=== PATIENT | male | born 1940 | race Caucasian/White ===

== ENCOUNTER 2016-11-12 13:44 | Inpatient (IN) | payer MEDICARE, MEDICAID ==
[~2016-11-12] VITALS: Ht 185.4 cm; Wt 84.8 kg
[~2016-11-12 13:44] MED LIST: ALBU18HF INH; BIMA2.5D EACHEYE; BRIM5DRO3 EACHEYE; DILT30TA33 PO; FAMO-79 PO; FLUT1DIS3 INH; GEMF600T3 PO; HYDR-882 PO; HYDR4TAB48 PO; IPRA4AER INH; LISI30TA4 PO; LORA2TAB PO; METF500T4 PO; POTA20TA6 PO; SPIR50TA2 PO; [UNRECOGNIZED DRUG - CODE] EACHEYE
[2016-11-12] MEDS ORDERED: SODIUM CHLORIDE FLUSH 10ML SYR IVF ONE (14:00)
[2016-11-12] MEDS ORDERED: PLEASE ENTER HEIGHT AND WEIGHT MC SCH (14:00)
[2016-11-12 14:29] LABS: ASPARTATE AMINO TRANSFERASE 19 U/L (15-37); BLOOD UREA NITROGEN 16 mg/dL (7-18)
[2016-11-12] MEDS ORDERED: SUVO20TA PO (14:30)
[2016-11-12] MEDS ORDERED: METO25TA91 PO (14:30)
[2016-11-12] MEDS ORDERED: TORS20TA2 PO (14:30)
[2016-11-12] MEDS ORDERED: DOCU-144 PO (14:30)
[2016-11-12] MEDS ORDERED: WARF4TAB PO (14:30)
[2016-11-12] MEDS ORDERED: TAMS0.4C2 PO (14:30)
[2016-11-12 14:34] LABS: IS PT STATUS REG ER OR PRE ER? YES
[2016-11-12] MEDS ORDERED: SODIUM CHLORIDE 0.9% 1,000 ML IV ONE (14:44)
[2016-11-12] MEDS ORDERED: ALBUTEROL/IPRATROPIUM 2.5MG/0.5MG, 3 ML ONE (14:51)
[2016-11-12 14:58] LABS: DIFF TOTAL CELLS COUNTED 100 CELL DIFF
[2016-11-12] MEDS ORDERED: AZITHROMYCIN 500 MG in SODIUM CHLORIDE 0.9% 250 ML IV ONE (15:00)
[2016-11-12] MEDS ORDERED: CEFTRIAXONE PMX 1GM/50ML 50 ML IVPB ONE (15:00)
[2016-11-12 15:02] LABS: ANISOCYTOSIS 1+
[2016-11-12 15:04] LABS: VERIFY COUNTS? YES
[2016-11-12] MEDS: ALBUTEROL/IPRATROPIUM 2.5MG/0.5MG, 3 ML NPPB SCH ×2 (15:09→18:57)
[2016-11-12] MEDS ORDERED: SODIUM CHLORIDE 0.9% 1,000 ML IV SCH (15:24)
[2016-11-12] MEDS ORDERED: FAMOTIDINE 20 MG TABLET PO SCH (15:30)
[2016-11-12] MEDS ORDERED: ACETAMINOPHEN 325 MG TABLET PO PRN (15:30)
[2016-11-12] MEDS ORDERED: NITROGLYCERIN 0.4 MG BOTTLE (25 TABS) SL PRN (15:30)
[2016-11-12] MEDS ORDERED: SUVOREXANT PO PRN (15:30)
[2016-11-12] MEDS ORDERED: hydrALAzine 20 MG/ML, 1ML IVPush PRN (15:30)
[2016-11-12] MEDS ORDERED: DOCUSATE 100 MG CAPSULE PO PRN (15:30)
[2016-11-12] MEDS ORDERED: MAGNESIUM SULFATE PMX 4GM/100M 100 ML IV ONE (16:30)
[2016-11-12 16:50] VITALS: BP 109/70
[2016-11-12] MEDS: INSULIN ASPART 100 UNITS/ML, PEN SQ-INSULIN SCH ×2 (17:18→21:00)
[2016-11-12] MEDS: HYDROmorphone 2MG TABLET PO PRN ×2 (17:18→21:41)
[2016-11-12] MEDS: CEFTRIAXONE PMX 2GM/50ML 50 ML IV SCH (17:18)
[2016-11-12] MEDS: AZITHROMYCIN 500 MG in SODIUM CHLORIDE 0.9% 250 ML IV SCH (17:29)
[2016-11-12] MEDS: methylPREDNISolone SOD SUCC 125 MG/2 ML IVPush SCH (18:22)
[2016-11-12 20:00] VITALS: BP 99/63
[2016-11-12] MEDS ORDERED: DILT180C2 PO (20:23)
[2016-11-12] MEDS ORDERED: BIMATOPROST EACHEYE SCH (21:00)
[2016-11-12] MEDS ORDERED: TEMPLATE NON-FORMULARY MED. (Ipratropium/Albuterol Sulfate (Combivent Respimat Inhal Spray INH SCH (21:00)
[2016-11-12] MEDS: LATANOPROST OPHTH 0.005%, 2.5ML EACHEYE SCH (21:34)
[2016-11-12] MEDS: TORSEMIDE 20 MG TABLET PO SCH (21:35)
[2016-11-12] MEDS: DILTIAZEM CD 180 MG CAP.ER.24H PO SCH (21:35)
[2016-11-12] MEDS: FAMOTIDINE 20 MG TABLET PO SCH (21:35)
[2016-11-12] MEDS ORDERED: FLUO60TA PO (23:21)
[2016-11-13] MEDS: HYDROmorphone 2MG TABLET PO PRN ×4 (01:56→22:19)
[2016-11-13] MEDS: methylPREDNISolone SOD SUCC 125 MG/2 ML IVPush SCH ×3 (01:56→18:11)
[2016-11-13 02:00] VITALS: BP 101/57
[2016-11-13] MEDS: ALBUTEROL/IPRATROPIUM 2.5MG/0.5MG, 3 ML NPPB SCH ×6 (03:00→22:40)
[2016-11-13 05:49] LABS: BLOOD UREA NITROGEN 21 mg/dL (7-18)
[2016-11-13 05:53] LABS: ASPARTATE AMINO TRANSFERASE 17 U/L (15-37)
[2016-11-13 06:58] VITALS: BP 102/54
[2016-11-13] MEDS: INSULIN ASPART 100 UNITS/ML, PEN SQ-INSULIN SCH ×4 (07:55→21:00)
[2016-11-13] MEDS: FLUTICASONE/VILANTEROL 100-25MCG/INH INH SCH (09:00)
[2016-11-13] MEDS ORDERED: DILTIAZEM CD 180 MG CAP.ER.24H PO SCH (09:00)
[2016-11-13] MEDS: DILTIAZEM CD 180 MG CAP.ER.24H PO SCH ×3 (09:11→22:00)
[2016-11-13] MEDS: SPIRONOLACTONE 50 MG TABLET PO SCH (09:11)
[2016-11-13] MEDS: TORSEMIDE 20 MG TABLET PO SCH ×2 (09:12→22:00)
[2016-11-13] MEDS: DOCUSATE 100 MG CAPSULE PO SCH (09:12)
[2016-11-13] MEDS: TAMSULOSIN 0.4 MG CAP.ER.24H PO SCH (09:13)
[2016-11-13] MEDS: METOPROLOL SUCCINATE 25 MG TAB.ER.24H PO SCH (09:13)
[2016-11-13] MEDS ORDERED: SODIUM CHLORIDE 0.9% 500 ML IV SCH (11:00)
[2016-11-13 12:09] VITALS: BP 104/58
[2016-11-13] MEDS: BISACODYL 10 MG SUPP PR PRN (12:12)
[2016-11-13 12:14] VITALS: BP 97/54
[2016-11-13] MEDS: FLUOXETINE 20 MG CAPSULE PO SCH (13:03)
[2016-11-13] MEDS ORDERED: AZITHROMYCIN 500 MG in SODIUM CHLORIDE 0.9% 250 ML IV SCH (15:30)
[2016-11-13] MEDS ORDERED: CEFTRIAXONE PMX 2GM/50ML 50 ML IV SCH (15:30)
[2016-11-13 16:02] LABS: ABG COLLECTION SITE LEFT BRACHIAL
[2016-11-13] MEDS: AZITHROMYCIN 500 MG in SODIUM CHLORIDE 0.9% 250 ML IV SCH (16:49)
[2016-11-13] MEDS: CEFTRIAXONE PMX 2GM/50ML 50 ML IV SCH (18:11)
[2016-11-13 18:49] LABS: IS PT STATUS REG ER OR PRE ER? NO
[2016-11-13 19:42] VITALS: BP 92/54
[2016-11-13] MEDS ORDERED: DILTIAZEM HCL 180 MG PO SCH (21:00)
[2016-11-13] MEDS: LATANOPROST OPHTH 0.005%, 2.5ML EACHEYE SCH (22:00)
[2016-11-13] MEDS: FAMOTIDINE 20 MG TABLET PO SCH (22:01)
[2016-11-13 22:07] VITALS: BP 102/62
[2016-11-13 23:39] LABS: IS PT STATUS REG ER OR PRE ER? NO
[2016-11-14 00:55] VITALS: BP 107/63
[2016-11-14] MEDS: ALBUTEROL/IPRATROPIUM 2.5MG/0.5MG, 3 ML NPPB SCH ×5 (01:24→22:22)
[2016-11-14] MEDS: methylPREDNISolone SOD SUCC 125 MG/2 ML IVPush SCH ×3 (01:28→18:08)
[2016-11-14] MEDS: HYDROmorphone 2MG TABLET PO PRN ×5 (03:14→22:40)
[2016-11-14 05:29] LABS: BLOOD UREA NITROGEN 22 mg/dL (7-18)
[2016-11-14 05:32] LABS: ASPARTATE AMINO TRANSFERASE 8 U/L (15-37)
[2016-11-14 05:36] LABS: IS PT STATUS REG ER OR PRE ER? NO
[2016-11-14] MEDS: INSULIN ASPART 100 UNITS/ML, PEN SQ-INSULIN SCH ×4 (07:00→21:00)
[2016-11-14 08:00] VITALS: BP 107/66
[2016-11-14] MEDS: DILTIAZEM CD 180 MG CAP.ER.24H PO SCH ×2 (08:48→21:01)
[2016-11-14] MEDS: SPIRONOLACTONE 50 MG TABLET PO SCH (08:48)
[2016-11-14] MEDS: METOPROLOL SUCCINATE 25 MG TAB.ER.24H PO SCH (08:48)
[2016-11-14] MEDS: FLUOXETINE 20 MG CAPSULE PO SCH (08:48)
[2016-11-14] MEDS: TORSEMIDE 20 MG TABLET PO SCH ×2 (08:48→21:01)
[2016-11-14] MEDS: DOCUSATE 100 MG CAPSULE PO SCH (08:48)
[2016-11-14] MEDS: FLUTICASONE/VILANTEROL 100-25MCG/INH INH SCH (10:25)
[2016-11-14] MEDS: TAMSULOSIN 0.4 MG CAP.ER.24H PO SCH (10:25)
[2016-11-14] MEDS: SODIUM CHLORIDE 0.9% 500 ML IV SCH ×3 (11:00→22:40)
[2016-11-14 13:15] VITALS: BP 112/67
[2016-11-14] MEDS: AZITHROMYCIN 500 MG in SODIUM CHLORIDE 0.9% 250 ML IV SCH (15:30)
[2016-11-14] MEDS: CEFTRIAXONE PMX 2GM/50ML 50 ML IV SCH (16:52)
[2016-11-14] MEDS ORDERED: WARFARIN 2 MG TABLET PO-COUM ONE (18:00)
[2016-11-14 19:46] VITALS: BP 120/71
[2016-11-14] MEDS: FAMOTIDINE 20 MG TABLET PO SCH (21:01)
[2016-11-14] MEDS: GUAIFENESIN ER 600 MG TABLET PO SCH (21:01)
[2016-11-14] MEDS: LATANOPROST OPHTH 0.005%, 2.5ML EACHEYE SCH (21:01)
[2016-11-14] MEDS: BISACODYL 10 MG SUPP PR PRN (21:02)
[2016-11-15] MEDS: methylPREDNISolone SOD SUCC 125 MG/2 ML IVPush SCH ×2 (01:50→09:01)
[2016-11-15] MEDS: ALBUTEROL/IPRATROPIUM 2.5MG/0.5MG, 3 ML NPPB SCH ×3 (02:21→10:47)
[2016-11-15] MEDS: HYDROmorphone 2MG TABLET PO PRN ×2 (02:44→07:09)
[2016-11-15 02:53] VITALS: BP 128/67
[2016-11-15] MEDS: INSULIN ASPART 100 UNITS/ML, PEN SQ-INSULIN SCH ×3 (07:00→12:09)
[2016-11-15] MEDS: SODIUM CHLORIDE 0.9% 500 ML IV SCH (08:00)
[2016-11-15 08:08] VITALS: BP 108/65
[2016-11-15] MEDS: FLUTICASONE/VILANTEROL 100-25MCG/INH INH SCH (09:01)
[2016-11-15] MEDS: FLUOXETINE 20 MG CAPSULE PO SCH (09:04)
[2016-11-15] MEDS: SPIRONOLACTONE 50 MG TABLET PO SCH (09:04)
[2016-11-15] MEDS: DOCUSATE 100 MG CAPSULE PO SCH (09:04)
[2016-11-15] MEDS: TAMSULOSIN 0.4 MG CAP.ER.24H PO SCH (09:04)
[2016-11-15] MEDS: TORSEMIDE 20 MG TABLET PO SCH (09:05)
[2016-11-15] MEDS: GUAIFENESIN ER 600 MG TABLET PO SCH (09:05)
[2016-11-15] MEDS: DILTIAZEM CD 180 MG CAP.ER.24H PO SCH (09:05)
[2016-11-15] MEDS: METOPROLOL SUCCINATE 25 MG TAB.ER.24H PO SCH (09:05)
[2016-11-15 13:09] VITALS: BP 110/66
[2016-11-15] MEDS ORDERED: FLUT1DIS3 INH (14:59)
[2016-11-15] MEDS ORDERED: AZIT500T PO (14:59)
[2016-11-15] MEDS ORDERED: IPRA3AMP NPPB (14:59)
[2016-11-15] MEDS ORDERED: CEFD300C37 PO (14:59)
[2016-11-15] MEDS ORDERED: PRED5TAB PO (14:59)
[2016-11-15] MEDS ORDERED: ALBUTEROL/IPRATROPIUM 2.5MG/0.5MG, 3 ML NPPB SCH (15:00)
[2016-11-15] MEDS ORDERED: NITR100C56 PO (15:09)
[2016-11-15] MEDS ORDERED: WARFARIN 2.5 MG TABLET PO-COUM ONE (18:00)
== END 2016-11-15 15:50 | disposition home or self-care (01) | DRG 871 ==
LOC: ED 14:02 → EDIP 14:58 → 4WST 16:39
PROVIDERS: ADMIT Internal Medicine; ATTEND Internal Medicine
DX: A41.9 Sepsis, unspecified organism (principal); J18.9 Pneumonia, unspecified organism; J96.21 Acute and chronic respiratory failure with hypoxia; D68.69 Other thrombophilia; E87.1 Hypo-osmolality and hyponatremia; J44.0 Chronic obstructive pulmonary disease with (acute) lower respiratory infection; I50.22 Chronic systolic (congestive) heart failure; J44.1 Chronic obstructive pulmonary disease with (acute) exacerbation; N39.0 Urinary tract infection, site not specified; B95.2 Enterococcus as the cause of diseases classified elsewhere; E11.9 Type 2 diabetes mellitus without complications; E78.5 Hyperlipidemia, unspecified; F32.9 Major depressive disorder, single episode, unspecified; F41.9 Anxiety disorder, unspecified; G89.4 Chronic pain syndrome; I07.1 Rheumatic tricuspid insufficiency; I11.0 Hypertensive heart disease with heart failure; I27.2 Other secondary pulmonary hypertension; I34.0 Nonrheumatic mitral (valve) insufficiency; I35.1 Nonrheumatic aortic (valve) insufficiency; I48.91 Unspecified atrial fibrillation; K21.9 Gastro-esophageal reflux disease without esophagitis; N40.0 Benign prostatic hyperplasia without lower urinary tract symptoms; R65.20 Severe sepsis without septic shock; Z79.01 Long term (current) use of anticoagulants; Z96.641 Presence of right artificial hip joint; K59.00 Constipation, unspecified; Z82.49 Family history of ischemic heart disease and other diseases of the circulatory system; Z87.442 Personal history of urinary calculi; Z87.891 Personal history of nicotine dependence; Z95.0 Presence of cardiac pacemaker; Z95.2 Presence of prosthetic heart valve; Z99.81 Dependence on supplemental oxygen; Z88.0 Allergy status to penicillin; Z88.2 Allergy status to sulfonamides; Z88.8 Allergy status to other drugs, medicaments and biological substances
CPT/HCPCS: 36415; 36600; 71010; 80053; 81001; 82803; 82962; 83036; 83605; 83735; 83880; 84100; 84145; 84443; 84484; 85025; 85610; 87040; 87070; 87077; 87086; 87186; 87205; 93005; 93306; 94640; 99285; J0456; J0696; J1815; J7620; J2930; J3475; J7030; J7040; J7050

== ENCOUNTER 2016-11-24 15:02 | Inpatient (IN) | payer MEDICARE, MEDICAID ==
[~2016-11-24] VITALS: Ht 182.9 cm; Wt 86.2 kg
[~2016-11-24 15:02] MED LIST changes: +AZIT500T PO; +CEFD300C37 PO; +DILT180C2 PO; +DOCU-144 PO; +FLUO60TA PO; +IPRA3AMP NPPB; +METO25TA91 PO; +NITR100C56 PO; +PRED5TAB PO; +SUVO20TA PO; +TAMS0.4C2 PO; +TORS20TA2 PO; +WARF4TAB PO
[2016-11-24] MEDS ORDERED: SODIUM CHLORIDE 0.9% 1,000 ML IV ONE (15:12)
[2016-11-24] MEDS ORDERED: SODIUM CHLORIDE FLUSH 10ML SYR IVF ONE (15:30)
[2016-11-24] MEDS ORDERED: PLEASE ENTER HEIGHT AND WEIGHT MC SCH (15:30)
[2016-11-24] MEDS ORDERED: SODIUM CHLORIDE 0.9% 1,000ML IVBOLUS ONE ×3 (15:30→18:00)
[2016-11-24] MEDS ORDERED: HYDROmorphone 1 MG/ML, 1ML IV ONE (15:30)
[2016-11-24] MEDS ORDERED: HYDROmorphone 1 MG/ML, 1ML ONE (15:32)
[2016-11-24 15:39] LABS: HEMATOCRIT 39.3 % (39.2-51.8); HEMOGLOBIN 12.7 g/dL (13.7-18.0); WHITE BLOOD COUNT 36.4 x10^3/uL (3.4-10)
[2016-11-24 15:42] LABS: ASPARTATE AMINO TRANSFERASE 10 U/L (15-37); BLOOD UREA NITROGEN 16 mg/dL (7-18)
[2016-11-24] MEDS ORDERED: TADA5TAB2 PO (15:54)
[2016-11-24] MEDS ORDERED: BUSP7.5T3 PO (15:54)
[2016-11-24] MEDS ORDERED: TAMS0.4C2 PO (15:54)
[2016-11-24] MEDS ORDERED: DILT180C59 PO (15:54)
[2016-11-24] MEDS ORDERED: FLUO40CA9 PO (15:54)
[2016-11-24] MEDS ORDERED: ACETAMINOPHEN 500 MG TABLET ONE (15:59)
[2016-11-24] MEDS ORDERED: CEFTRIAXONE PMX 1GM/50ML 50 ML ONE (15:59)
[2016-11-24] MEDS ORDERED: ACETAMINOPHEN 500 MG TABLET PO ONE (16:00)
[2016-11-24] MEDS ORDERED: CEFTRIAXONE PMX 1GM/50ML 50 ML IVPB ONE (16:00)
[2016-11-24] MEDS ORDERED: SODIUM CHLORIDE 0.9% 1,000 ML IV SCH (20:38)
[2016-11-24] MEDS ORDERED: ACETAMINOPHEN 325 MG TABLET PO PRN (21:00)
[2016-11-24] MEDS ORDERED: TEMAZEPAM 15 MG CAPSULE PO PRN (21:00)
[2016-11-24] MEDS ORDERED: DILTIAZEM 90 MG CAP.ER.12H PO SCH (21:00)
[2016-11-24] MEDS ORDERED: ENALAPRILAT 1.25 MG/ML, 2ML IVPush PRN (21:00)
[2016-11-24] MEDS ORDERED: POLYETHYLENE GLYCOL 17 GM PACKET PO PRN (21:00)
[2016-11-24] MEDS ORDERED: ONDANSETRON ODT 4 MG PO PRN (21:00)
[2016-11-24] MEDS: INSULIN ASPART 100 UNITS/ML, PEN SQ-INSULIN SCH (21:30)
[2016-11-24] MEDS: FAMOTIDINE 20 MG TABLET PO SCH (21:44)
[2016-11-24] MEDS: BUSPIRONE 5 MG TABLET PO SCH (21:44)
[2016-11-24 23:45] VITALS: BP 101/63
[2016-11-25] MEDS ORDERED: ALBUTEROL/IPRATROPIUM 2.5MG/0.5MG, 3 ML NPPB PRN
[2016-11-25 00:24] VITALS: BP 115/75
[2016-11-25] MEDS: CEFTRIAXONE PMX 2GM/50ML 50 ML IV SCH (04:11)
[2016-11-25 05:31] LABS: HEMATOCRIT 37.6 % (39.2-51.8); HEMOGLOBIN 12.3 g/dL (13.7-18.0)
[2016-11-25 05:43] LABS: BLOOD UREA NITROGEN 15 mg/dL (7-18)
[2016-11-25] MEDS ORDERED: metroNIDAZOLE 500 MG TABLET PO SCH (06:00)
[2016-11-25 06:30] LABS: DIFF TOTAL CELLS COUNTED 100 CELL DIFF
[2016-11-25 06:31] LABS: VERIFY COUNTS? YES
[2016-11-25] MEDS: ALBUTEROL/IPRATROPIUM 2.5MG/0.5MG, 3 ML NPPB SCH ×2 (07:00→11:00)
[2016-11-25] MEDS: INSULIN ASPART 100 UNITS/ML, PEN SQ-INSULIN SCH ×4 (07:00→21:00)
[2016-11-25 07:46] VITALS: BP 107/71
[2016-11-25] MEDS ORDERED: AZITHROMYCIN 250 MG TABLET PO SCH (09:00)
[2016-11-25] MEDS: NYSTATIN TOPICAL POWDER 15GM TP SCH ×2 (09:00→21:00)
[2016-11-25] MEDS ORDERED: VANCOMYCIN 50 MG/ML ORAL SUSP PO SCH (09:00)
[2016-11-25] MEDS: DOCUSATE 100 MG CAPSULE PO SCH (09:00)
[2016-11-25] MEDS ORDERED: VANCOMYCIN 50 MG/ML ORAL SUSP PR SCH (09:30)
[2016-11-25] MEDS ORDERED: METRONIDAZOLE PMX 500MG/100ML 100 ML IVPB SCH (09:30)
[2016-11-25 10:13] LABS: ABG COLLECTION SITE LEFT RADIAL; COLLATERAL CIRCULATION TESTING NORMAL; FIO2 ROOM AIR %
[2016-11-25] MEDS: FLUOXETINE 20 MG CAPSULE PO SCH (10:41)
[2016-11-25] MEDS: BUSPIRONE 5 MG TABLET PO SCH ×2 (10:42→20:56)
[2016-11-25] MEDS: TAMSULOSIN 0.4 MG CAP.ER.24H PO SCH (10:42)
[2016-11-25] MEDS: SPIRONOLACTONE 50 MG TABLET PO SCH (10:42)
[2016-11-25] MEDS: SODIUM CHLORIDE 0.9% 1,000 ML IV SCH ×2 (10:43→18:27)
[2016-11-25] MEDS: METOPROLOL SUCCINATE 25 MG TAB.ER.24H PO SCH (10:43)
[2016-11-25] MEDS: FAMOTIDINE 20 MG TABLET PO SCH (10:43)
[2016-11-25 14:16] VITALS: BP_SYST 109; BP_SYST 117; BP_DIAS 73; BP_DIAS 76
[2016-11-25] MEDS: VANCOMYCIN 50 MG/ML ORAL SUSP PO SCH (18:00)
[2016-11-25] MEDS: metroNIDAZOLE 500 MG TABLET PO SCH (18:26)
[2016-11-25 19:55] VITALS: BP 100/65
[2016-11-25] MEDS ORDERED: HYDROmorphone 4MG TABLET PO SCH (20:00)
[2016-11-25] MEDS ORDERED: SODIUM CHLORIDE 0.9% 1,000 ML IV SCH (20:38)
[2016-11-25] MEDS: DILTIAZEM 60 MG CAP.ER.12H PO SCH (20:57)
[2016-11-25] MEDS: HYDROmorphone 4MG TABLET PO PRN (20:57)
[2016-11-25] MEDS ORDERED: DILTIAZEM 90 MG CAP.ER.12H PO SCH (21:00)
[2016-11-25] MEDS ORDERED: DILTIAZEM 120 MG CAP.ER.12H PO SCH (21:00)
[2016-11-26 00:31] VITALS: BP 121/86
[2016-11-26] MEDS: HYDROmorphone 4MG TABLET PO PRN ×5 (00:57→20:15)
[2016-11-26] MEDS: metroNIDAZOLE 500 MG TABLET PO SCH ×3 (03:15→17:41)
[2016-11-26] MEDS: SODIUM CHLORIDE 0.9% 1,000 ML IV SCH ×3 (03:17→22:45)
[2016-11-26] MEDS: CEFTRIAXONE PMX 2GM/50ML 50 ML IV SCH (05:00)
[2016-11-26] MEDS: VANCOMYCIN 50 MG/ML ORAL SUSP PO SCH ×4 (06:06→17:41)
[2016-11-26] MEDS: INSULIN ASPART 100 UNITS/ML, PEN SQ-INSULIN SCH ×4 (07:00→20:16)
[2016-11-26 07:11] VITALS: BP 126/80
[2016-11-26] MEDS: BUSPIRONE 5 MG TABLET PO SCH ×2 (08:44→20:14)
[2016-11-26] MEDS: TAMSULOSIN 0.4 MG CAP.ER.24H PO SCH (08:44)
[2016-11-26] MEDS: FAMOTIDINE 20 MG TABLET PO SCH (08:45)
[2016-11-26] MEDS: DOCUSATE 100 MG CAPSULE PO SCH (08:45)
[2016-11-26] MEDS: FLUOXETINE 20 MG CAPSULE PO SCH (08:45)
[2016-11-26] MEDS: METOPROLOL SUCCINATE 25 MG TAB.ER.24H PO SCH (08:45)
[2016-11-26 08:46] LABS: ASPARTATE AMINO TRANSFERASE 9 U/L (15-37); BLOOD UREA NITROGEN 10 mg/dL (7-18)
[2016-11-26] MEDS: DILTIAZEM 60 MG CAP.ER.12H PO SCH ×2 (08:46→20:14)
[2016-11-26] MEDS: SPIRONOLACTONE 50 MG TABLET PO SCH (08:46)
[2016-11-26 08:50] LABS: HEMATOCRIT 35.5 % (39.2-51.8); HEMOGLOBIN 11.6 g/dL (13.7-18.0); WHITE BLOOD COUNT 16.5 x10^3/uL (3.4-10)
[2016-11-26] MEDS: NYSTATIN TOPICAL POWDER 15GM TP SCH ×2 (09:00→20:18)
[2016-11-26 14:15] VITALS: BP 122/85
[2016-11-26 19:04] VITALS: BP 109/70
[2016-11-27 00:30] VITALS: BP 125/76
[2016-11-27] MEDS: VANCOMYCIN 50 MG/ML ORAL SUSP PO SCH ×4 (00:43→18:27)
[2016-11-27] MEDS: HYDROmorphone 4MG TABLET PO PRN ×5 (00:44→23:15)
[2016-11-27] MEDS: ALBUTEROL/IPRATROPIUM 2.5MG/0.5MG, 3 ML NPPB PRN ×3 (02:13→19:07)
[2016-11-27] MEDS: metroNIDAZOLE 500 MG TABLET PO SCH ×3 (02:34→19:54)
[2016-11-27] MEDS: SODIUM CHLORIDE 0.9% 1,000 ML IV SCH ×3 (05:56→21:48)
[2016-11-27] MEDS: INSULIN ASPART 100 UNITS/ML, PEN SQ-INSULIN SCH ×4 (07:00→21:43)
[2016-11-27 07:57] LABS: BLOOD UREA NITROGEN 8 mg/dL (7-18)
[2016-11-27 08:14] LABS: HEMATOCRIT 34.8 % (39.2-51.8); HEMOGLOBIN 11.2 g/dL (13.7-18.0); WHITE BLOOD COUNT 11.6 x10^3/uL (3.4-10)
[2016-11-27] MEDS: METOPROLOL SUCCINATE 25 MG TAB.ER.24H PO SCH (09:00)
[2016-11-27] MEDS: NYSTATIN TOPICAL POWDER 15GM TP SCH ×2 (09:00→21:47)
[2016-11-27] MEDS ORDERED: POTASSIUM CHLORIDE 20 MEQ TAB.ER.PRT PO ONE (09:00)
[2016-11-27] MEDS: FLUOXETINE 20 MG CAPSULE PO SCH (09:04)
[2016-11-27] MEDS: FAMOTIDINE 20 MG TABLET PO SCH (09:05)
[2016-11-27] MEDS: BUSPIRONE 5 MG TABLET PO SCH ×2 (09:07→21:46)
[2016-11-27] MEDS: DOCUSATE 100 MG CAPSULE PO SCH (09:07)
[2016-11-27] MEDS: SPIRONOLACTONE 50 MG TABLET PO SCH (09:07)
[2016-11-27] MEDS: TAMSULOSIN 0.4 MG CAP.ER.24H PO SCH (09:07)
[2016-11-27] MEDS: DILTIAZEM 60 MG CAP.ER.12H PO SCH ×2 (09:08→21:46)
[2016-11-27 09:16] VITALS: BP 113/73
[2016-11-27 13:04] VITALS: BP 108/64
[2016-11-27 19:56] VITALS: BP 129/72
[2016-11-28] MEDS: VANCOMYCIN 50 MG/ML ORAL SUSP PO SCH ×4 (00:29→20:37)
[2016-11-28 01:11] VITALS: BP 122/81
[2016-11-28] MEDS: metroNIDAZOLE 500 MG TABLET PO SCH ×3 (03:19→19:44)
[2016-11-28] MEDS: HYDROmorphone 4MG TABLET PO PRN ×5 (03:19→23:31)
[2016-11-28] MEDS: ALBUTEROL/IPRATROPIUM 2.5MG/0.5MG, 3 ML NPPB PRN (04:20)
[2016-11-28] MEDS ORDERED: GLUCAGON 1 MG IM PRN (04:30)
[2016-11-28] MEDS ORDERED: DEXTROSE 4 GM TAB.CHEW PO PRN (04:30)
[2016-11-28] MEDS ORDERED: DEXTROSE 50%, 50ML SYRINGE IVPush PRN (04:30)
[2016-11-28] MEDS: SODIUM CHLORIDE 0.9% 1,000 ML IV SCH ×3 (05:50→21:34)
[2016-11-28] MEDS: ALBUTEROL/IPRATROPIUM 2.5MG/0.5MG, 3 ML NPPB SCH ×4 (07:00→19:14)
[2016-11-28] MEDS: INSULIN ASPART 100 UNITS/ML, PEN SQ-INSULIN SCH ×4 (07:00→20:04)
[2016-11-28 07:53] VITALS: BP 126/77
[2016-11-28] MEDS: POTASSIUM CHLORIDE 20 MEQ TAB.ER.PRT PO SCH (09:27)
[2016-11-28] MEDS: BUSPIRONE 5 MG TABLET PO SCH ×2 (09:28→20:37)
[2016-11-28] MEDS: FLUOXETINE 20 MG CAPSULE PO SCH (09:28)
[2016-11-28] MEDS: TAMSULOSIN 0.4 MG CAP.ER.24H PO SCH (09:28)
[2016-11-28] MEDS: SPIRONOLACTONE 50 MG TABLET PO SCH (09:28)
[2016-11-28] MEDS: SODIUM CHLORIDE FLUSH 10ML SYR IVF SCH ×2 (09:28→20:37)
[2016-11-28] MEDS: FAMOTIDINE 20 MG TABLET PO SCH (09:28)
[2016-11-28] MEDS: NYSTATIN TOPICAL POWDER 15GM TP SCH ×2 (09:28→20:38)
[2016-11-28] MEDS: DOCUSATE 100 MG CAPSULE PO SCH (09:29)
[2016-11-28] MEDS: METOPROLOL SUCCINATE 25 MG TAB.ER.24H PO SCH (09:29)
[2016-11-28] MEDS: DILTIAZEM 60 MG CAP.ER.12H PO SCH ×2 (09:29→20:38)
[2016-11-28 13:09] VITALS: BP 127/75
[2016-11-28 13:43] LABS: BLOOD UREA NITROGEN 6 mg/dL (7-18)
[2016-11-28 19:25] VITALS: BP 118/74
[2016-11-29 01:51] VITALS: BP 126/79
[2016-11-29] MEDS: metroNIDAZOLE 500 MG TABLET PO SCH ×3 (01:52→18:39)
[2016-11-29] MEDS: VANCOMYCIN 50 MG/ML ORAL SUSP PO SCH ×4 (01:52→20:30)
[2016-11-29] MEDS: SODIUM CHLORIDE 0.9% 1,000 ML IV SCH (06:00)
[2016-11-29] MEDS: HYDROmorphone 4MG TABLET PO PRN ×2 (06:00→10:06)
[2016-11-29] MEDS: ALBUTEROL/IPRATROPIUM 2.5MG/0.5MG, 3 ML NPPB SCH ×4 (07:00→18:55)
[2016-11-29 08:10] VITALS: BP 129/88
[2016-11-29] MEDS: NYSTATIN TOPICAL POWDER 15GM TP SCH ×2 (08:47→23:26)
[2016-11-29] MEDS: SODIUM CHLORIDE FLUSH 10ML SYR IVF SCH ×2 (08:53→21:53)
[2016-11-29] MEDS: POTASSIUM CHLORIDE 20 MEQ TAB.ER.PRT PO SCH (08:53)
[2016-11-29] MEDS: FLUOXETINE 20 MG CAPSULE PO SCH (08:54)
[2016-11-29] MEDS: FAMOTIDINE 20 MG TABLET PO SCH (08:54)
[2016-11-29] MEDS: DOCUSATE 100 MG CAPSULE PO SCH (08:54)
[2016-11-29] MEDS: TAMSULOSIN 0.4 MG CAP.ER.24H PO SCH (08:54)
[2016-11-29] MEDS: SPIRONOLACTONE 50 MG TABLET PO SCH (08:54)
[2016-11-29] MEDS: BUSPIRONE 5 MG TABLET PO SCH ×2 (08:54→21:54)
[2016-11-29] MEDS: METOPROLOL SUCCINATE 25 MG TAB.ER.24H PO SCH (08:54)
[2016-11-29] MEDS: INSULIN ASPART 100 UNITS/ML, PEN SQ-INSULIN SCH ×4 (08:55→21:00)
[2016-11-29] MEDS: DILTIAZEM 60 MG CAP.ER.12H PO SCH ×2 (08:55→21:53)
[2016-11-29 14:43] VITALS: BP 104/65
[2016-11-29 15:40] LABS: ABG COLLECTION SITE RIGHT RADIAL; COLLATERAL CIRCULATION TESTING NORMAL
[2016-11-29] MEDS ORDERED: FUROSEMIDE 40 MG/4 ML IV ONE (16:30)
[2016-11-29] MEDS ORDERED: FUROSEMIDE 20 MG/2 ML IV ONE (16:30)
[2016-11-29] MEDS ORDERED: WARFARIN 2 MG TABLET PO-COUM SCH (18:00)
[2016-11-29] MEDS ORDERED: TEMAZEPAM 15 MG CAPSULE PO PRN (20:00)
[2016-11-29] MEDS ORDERED: GLUCAGON 1 MG IM PRN (20:00)
[2016-11-29] MEDS ORDERED: ONDANSETRON ODT 4 MG PO PRN (20:00)
[2016-11-29] MEDS ORDERED: ENALAPRILAT 1.25 MG/ML, 2ML IVPush PRN (20:00)
[2016-11-29] MEDS ORDERED: DEXTROSE 4 GM TAB.CHEW PO PRN (20:00)
[2016-11-29] MEDS ORDERED: ACETAMINOPHEN 325 MG TABLET PO PRN (20:00)
[2016-11-29] MEDS ORDERED: DEXTROSE 50%, 50ML SYRINGE IVPush PRN (20:00)
[2016-11-29 21:23] VITALS: BP 109/70
[2016-11-30] MEDS: VANCOMYCIN 50 MG/ML ORAL SUSP PO SCH ×4 (02:05→20:57)
[2016-11-30 02:36] VITALS: BP 137/70
[2016-11-30] MEDS: metroNIDAZOLE 500 MG TABLET PO SCH ×3 (02:41→18:38)
[2016-11-30] MEDS: ALBUTEROL/IPRATROPIUM 2.5MG/0.5MG, 3 ML NPPB SCH ×4 (06:54→20:00)
[2016-11-30 07:25] VITALS: BP 119/76
[2016-11-30] MEDS: INSULIN ASPART 100 UNITS/ML, PEN SQ-INSULIN SCH ×4 (07:30→20:57)
[2016-11-30 07:48] LABS: HEMATOCRIT 36.9 % (39.2-51.8); HEMOGLOBIN 12.1 g/dL (13.7-18.0)
[2016-11-30 07:57] LABS: ABG COLLECTION SITE RIGHT RADIAL; COLLATERAL CIRCULATION TESTING NORMAL
[2016-11-30 07:58] LABS: ASPARTATE AMINO TRANSFERASE 9 U/L (15-37); BLOOD UREA NITROGEN 6 mg/dL (7-18)
[2016-11-30] MEDS ORDERED: FUROSEMIDE 40 MG/4 ML IV ONE (08:00)
[2016-11-30] MEDS ORDERED: OMNIPAQUE 350 MG/ML, 100ML BOTTLE ONE (08:39)
[2016-11-30] MEDS: FAMOTIDINE 20 MG TABLET PO SCH (08:52)
[2016-11-30] MEDS: TAMSULOSIN 0.4 MG CAP.ER.24H PO SCH (08:52)
[2016-11-30] MEDS: DOCUSATE 100 MG CAPSULE PO SCH (08:53)
[2016-11-30] MEDS: SPIRONOLACTONE 50 MG TABLET PO SCH (08:53)
[2016-11-30] MEDS: BUSPIRONE 5 MG TABLET PO SCH ×2 (08:53→20:56)
[2016-11-30] MEDS: FLUOXETINE 20 MG CAPSULE PO SCH (08:54)
[2016-11-30] MEDS: METOPROLOL SUCCINATE 25 MG TAB.ER.24H PO SCH (08:54)
[2016-11-30] MEDS: DILTIAZEM 60 MG CAP.ER.12H PO SCH ×2 (08:55→20:57)
[2016-11-30] MEDS: SODIUM CHLORIDE FLUSH 10ML SYR IVF SCH ×2 (08:55→20:57)
[2016-11-30] MEDS: POTASSIUM CHLORIDE 20 MEQ TAB.ER.PRT PO SCH (08:55)
[2016-11-30] MEDS ORDERED: LIDOCAINE 1%, 20ML ONE (11:02)
[2016-11-30] MEDS: NYSTATIN TOPICAL POWDER 15GM TP SCH ×2 (12:09→20:59)
[2016-11-30] MEDS: HYDROmorphone 4MG TABLET PO PRN ×3 (13:16→21:34)
[2016-11-30 14:30] VITALS: BP 97/63
[2016-11-30] MEDS ORDERED: WARFARIN 7.5 MG TABLET PO-COUM SCH (18:00)
[2016-11-30 19:54] VITALS: BP 101/66
[2016-12-01] MEDS: HYDROmorphone 4MG TABLET PO PRN ×4 (01:36→22:33)
[2016-12-01] MEDS: VANCOMYCIN 50 MG/ML ORAL SUSP PO SCH ×4 (01:36→22:33)
[2016-12-01 01:47] VITALS: BP 98/62
[2016-12-01] MEDS: ALBUTEROL/IPRATROPIUM 2.5MG/0.5MG, 3 ML NPPB SCH ×5 (02:27→19:40)
[2016-12-01] MEDS: metroNIDAZOLE 500 MG TABLET PO SCH ×3 (03:21→21:13)
[2016-12-01] MEDS: INSULIN ASPART 100 UNITS/ML, PEN SQ-INSULIN SCH ×4 (07:00→21:00)
[2016-12-01 08:48] VITALS: BP 113/67
[2016-12-01] MEDS: DOCUSATE 100 MG CAPSULE PO SCH (08:55)
[2016-12-01] MEDS: POTASSIUM CHLORIDE 20 MEQ TAB.ER.PRT PO SCH (08:56)
[2016-12-01] MEDS: SODIUM CHLORIDE FLUSH 10ML SYR IVF SCH ×2 (08:56→21:13)
[2016-12-01] MEDS: SPIRONOLACTONE 50 MG TABLET PO SCH (08:57)
[2016-12-01] MEDS: BUSPIRONE 5 MG TABLET PO SCH ×2 (08:57→21:13)
[2016-12-01] MEDS: FLUOXETINE 20 MG CAPSULE PO SCH (08:58)
[2016-12-01] MEDS: FAMOTIDINE 20 MG TABLET PO SCH (08:58)
[2016-12-01] MEDS: METOPROLOL SUCCINATE 25 MG TAB.ER.24H PO SCH (08:58)
[2016-12-01] MEDS: TAMSULOSIN 0.4 MG CAP.ER.24H PO SCH (08:58)
[2016-12-01] MEDS: DILTIAZEM 60 MG CAP.ER.12H PO SCH ×2 (08:58→21:13)
[2016-12-01] MEDS: NYSTATIN TOPICAL POWDER 15GM TP SCH ×2 (09:13→21:29)
[2016-12-01 15:00] VITALS: BP 99/61
[2016-12-01] MEDS ORDERED: LIDOCAINE 1%, 20ML ONE (15:05)
[2016-12-01] MEDS ORDERED: WARFARIN 7.5 MG TABLET PO-COUM ONE (18:00)
[2016-12-01 20:07] VITALS: BP 105/66
[2016-12-02 01:49] VITALS: BP 98/102
[2016-12-02] MEDS: HYDROmorphone 4MG TABLET PO PRN ×4 (02:52→20:35)
[2016-12-02] MEDS: ALBUTEROL/IPRATROPIUM 2.5MG/0.5MG, 3 ML NPPB SCH ×5 (03:03→21:10)
[2016-12-02] MEDS: VANCOMYCIN 50 MG/ML ORAL SUSP PO SCH ×3 (05:03→17:20)
[2016-12-02] MEDS: metroNIDAZOLE 500 MG TABLET PO SCH ×2 (05:03→12:09)
[2016-12-02] MEDS: INSULIN ASPART 100 UNITS/ML, PEN SQ-INSULIN SCH ×4 (07:00→20:36)
[2016-12-02 07:45] VITALS: BP 114/77
[2016-12-02] MEDS: DOCUSATE 100 MG CAPSULE PO SCH (09:00)
[2016-12-02] MEDS: NYSTATIN TOPICAL POWDER 15GM TP SCH ×2 (09:00→20:36)
[2016-12-02] MEDS: POTASSIUM CHLORIDE 20 MEQ TAB.ER.PRT PO SCH (09:23)
[2016-12-02] MEDS: SPIRONOLACTONE 50 MG TABLET PO SCH (09:23)
[2016-12-02] MEDS: FAMOTIDINE 20 MG TABLET PO SCH (09:23)
[2016-12-02] MEDS: DILTIAZEM 60 MG CAP.ER.12H PO SCH ×2 (09:23→20:35)
[2016-12-02] MEDS: FLUOXETINE 20 MG CAPSULE PO SCH (09:24)
[2016-12-02] MEDS: BUSPIRONE 5 MG TABLET PO SCH ×2 (09:24→20:34)
[2016-12-02] MEDS: TAMSULOSIN 0.4 MG CAP.ER.24H PO SCH (09:24)
[2016-12-02] MEDS: SODIUM CHLORIDE FLUSH 10ML SYR IVF SCH ×2 (09:24→20:34)
[2016-12-02] MEDS: METOPROLOL SUCCINATE 25 MG TAB.ER.24H PO SCH (10:01)
[2016-12-02 12:00] VITALS: BP 110/68
[2016-12-02 16:17] LABS: CYTOLOGY BODY FLUID RECD INTO PATHOLOGY; CYTOLOGY BODY FLUID SOURCE PLEURAL FLUID
[2016-12-02] MEDS ORDERED: WARFARIN 7.5 MG TABLET PO-COUM SCH (18:00)
[2016-12-02 19:30] VITALS: BP 120/77
[2016-12-03] MEDS: HYDROmorphone 4MG TABLET PO PRN ×6 (01:00→22:31)
[2016-12-03 01:12] VITALS: BP 130/83
[2016-12-03] MEDS: VANCOMYCIN 50 MG/ML ORAL SUSP PO SCH ×4 (05:25→18:19)
[2016-12-03] MEDS: ALBUTEROL/IPRATROPIUM 2.5MG/0.5MG, 3 ML NPPB SCH ×4 (05:40→18:50)
[2016-12-03 05:54] LABS: HEMATOCRIT 36.1 % (39.2-51.8); HEMOGLOBIN 11.6 g/dL (13.7-18.0); WHITE BLOOD COUNT 7.3 x10^3/uL (3.4-10)
[2016-12-03 06:00] LABS: BLOOD UREA NITROGEN 11 mg/dL (7-18)
[2016-12-03 06:45] VITALS: BP 135/80
[2016-12-03] MEDS: INSULIN ASPART 100 UNITS/ML, PEN SQ-INSULIN SCH ×4 (07:00→21:00)
[2016-12-03] MEDS: POTASSIUM CHLORIDE 20 MEQ TAB.ER.PRT PO SCH (08:00)
[2016-12-03] MEDS: NYSTATIN TOPICAL POWDER 15GM TP SCH ×2 (09:00→22:31)
[2016-12-03] MEDS: DOCUSATE 100 MG CAPSULE PO SCH (09:00)
[2016-12-03] MEDS: FAMOTIDINE 20 MG TABLET PO SCH (09:00)
[2016-12-03] MEDS: TORSEMIDE 20 MG TABLET PO SCH ×3 (09:00→21:00)
[2016-12-03] MEDS: SODIUM CHLORIDE FLUSH 10ML SYR IVF SCH ×2 (09:02→22:28)
[2016-12-03] MEDS: TAMSULOSIN 0.4 MG CAP.ER.24H PO SCH (09:03)
[2016-12-03] MEDS: FLUOXETINE 20 MG CAPSULE PO SCH (09:04)
[2016-12-03] MEDS: DILTIAZEM 60 MG CAP.ER.12H PO SCH ×2 (09:04→22:29)
[2016-12-03] MEDS: SPIRONOLACTONE 50 MG TABLET PO SCH (09:04)
[2016-12-03] MEDS: BUSPIRONE 5 MG TABLET PO SCH ×2 (09:05→22:29)
[2016-12-03] MEDS: METOPROLOL SUCCINATE 25 MG TAB.ER.24H PO SCH (09:05)
[2016-12-03 12:00] VITALS: BP 118/71
[2016-12-03] MEDS ORDERED: WARFARIN 3 MG TABLET PO-COUM SCH (18:00)
[2016-12-03 20:39] VITALS: BP 105/67
[2016-12-04] MEDS: VANCOMYCIN 50 MG/ML ORAL SUSP PO SCH ×2 (00:11→05:56)
[2016-12-04 01:27] VITALS: BP 109/72
[2016-12-04] MEDS: HYDROmorphone 4MG TABLET PO PRN ×3 (02:46→13:23)
[2016-12-04] MEDS: INSULIN ASPART 100 UNITS/ML, PEN SQ-INSULIN SCH ×2 (07:00→11:00)
[2016-12-04] MEDS: ALBUTEROL/IPRATROPIUM 2.5MG/0.5MG, 3 ML NPPB SCH ×2 (07:40→11:20)
[2016-12-04 07:56] VITALS: BP 100/66
[2016-12-04] MEDS: SODIUM CHLORIDE FLUSH 10ML SYR IVF SCH (09:00)
[2016-12-04] MEDS: NYSTATIN TOPICAL POWDER 15GM TP SCH (09:00)
[2016-12-04] MEDS: DILTIAZEM 60 MG CAP.ER.12H PO SCH (09:00)
[2016-12-04] MEDS: BUSPIRONE 5 MG TABLET PO SCH (09:46)
[2016-12-04] MEDS: METOPROLOL SUCCINATE 25 MG TAB.ER.24H PO SCH (09:47)
[2016-12-04] MEDS: DOCUSATE 100 MG CAPSULE PO SCH (09:47)
[2016-12-04] MEDS: SPIRONOLACTONE 50 MG TABLET PO SCH (09:47)
[2016-12-04] MEDS: TORSEMIDE 20 MG TABLET PO SCH (09:47)
[2016-12-04] MEDS: TAMSULOSIN 0.4 MG CAP.ER.24H PO SCH (09:47)
[2016-12-04] MEDS: FAMOTIDINE 20 MG TABLET PO SCH (09:47)
[2016-12-04] MEDS: FLUOXETINE 20 MG CAPSULE PO SCH (09:47)
[2016-12-04] MEDS ORDERED: DILT60CA PO (11:54)
[2016-12-04] MEDS ORDERED: NYST60PO TP (11:54)
[2016-12-04] MEDS ORDERED: Initiate Coumadin Protocol MC (11:54)
[2016-12-04] MEDS ORDERED: VANC1VIA3 PO (11:54)
[2016-12-04] MEDS ORDERED: WARFARIN 2 MG TABLET PO-COUM SCH (18:00)
== END 2016-12-04 13:33 | DRG 871 ==
LOC: ED 15:08 → EDIP 18:32 → 3NE 20:00
PROVIDERS: ADMIT Internal Medicine; ATTEND Internal Medicine
PROC: 0W993ZZ Drainage of Right Pleural Cavity, Percutaneous Approach (ICD-10-PCS; principal; 2016-11-30)
PROC: 0W9B3ZZ Drainage of Left Pleural Cavity, Percutaneous Approach (ICD-10-PCS; 2016-12-01)
DX: A41.9 Sepsis, unspecified organism (principal); E43 Unspecified severe protein-calorie malnutrition; G93.41 Metabolic encephalopathy; J96.20 Acute and chronic respiratory failure, unspecified whether with hypoxia or hypercapnia; D68.69 Other thrombophilia; E87.1 Hypo-osmolality and hyponatremia; I48.1 Persistent atrial fibrillation; J84.9 Interstitial pulmonary disease, unspecified; N39.0 Urinary tract infection, site not specified; R17 Unspecified jaundice; F11.20 Opioid dependence, uncomplicated; A04.7 Enterocolitis due to Clostridium difficile; I50.42 Chronic combined systolic (congestive) and diastolic (congestive) heart failure; J98.11 Atelectasis; J90 Pleural effusion, not elsewhere classified; Z68.25 Body mass index [BMI] 25.0-25.9, adult; Z88.0 Allergy status to penicillin; Z88.2 Allergy status to sulfonamides; Z88.8 Allergy status to other drugs, medicaments and biological substances; D64.9 Anemia, unspecified; E11.9 Type 2 diabetes mellitus without complications; E78.5 Hyperlipidemia, unspecified; E87.6 Hypokalemia; G89.29 Other chronic pain; H54.8 Legal blindness, as defined in USA; I11.0 Hypertensive heart disease with heart failure; I44.7 Left bundle-branch block, unspecified; I48.2 Chronic atrial fibrillation; J44.9 Chronic obstructive pulmonary disease, unspecified; K21.9 Gastro-esophageal reflux disease without esophagitis; N40.0 Benign prostatic hyperplasia without lower urinary tract symptoms; Z78.9 Other specified health status; Z79.01 Long term (current) use of anticoagulants; Z87.440 Personal history of urinary (tract) infections; Z87.442 Personal history of urinary calculi; Z87.891 Personal history of nicotine dependence; Z95.0 Presence of cardiac pacemaker; Z95.2 Presence of prosthetic heart valve; Z96.641 Presence of right artificial hip joint; Z99.81 Dependence on supplemental oxygen
CPT/HCPCS: 32555; 36415; 36600; 71010; 71275; 80048; 80053; 81001; 82040; 82042; 82803; 82945; 82962; 83605; 83615; 83986; 84145; 84157; 85025; 85610; 85730; 87040; 87070; 87086; 87205; 87324; 88112; 88305; 89051; 93005; 94640; 96361; 96365; 96375; J0696; J1170; J1940; J3370; J3490; J7620; Q9967; J7030

== ENCOUNTER 2017-05-05 00:32 | Emergency (ER) | payer MEDICARE, MEDICAID ==
[~2017-05-05] VITALS: Ht 177.8 cm; Wt 85.3 kg
[~2017-05-05 00:32] MED LIST changes: +BUSP7.5T3 PO; +DILT180C59 PO; +DILT60CA PO; +FLUO40CA9 PO; +Initiate Coumadin Protocol MC; +NYST60PO TP; +TADA5TAB2 PO; +VANC1VIA3 PO
[2017-05-05] MEDS ORDERED: CEFEPIME 1 GM in DEXTROSE 5% 50 ML IV ONE (01:00)
[2017-05-05] MEDS ORDERED: VANCOMYCIN PER PHARMACY IV ONE (01:00)
[2017-05-05] MEDS ORDERED: SODIUM CHLORIDE 0.9% 1,000ML IVBOLUS ONE ×5 (01:00→07:00)
[2017-05-05] MEDS ORDERED: VANCOMYCIN 1,600 MG in SODIUM CHLORIDE 0.9% 250 ML IV ONE (01:00)
[2017-05-05] MEDS ORDERED: PROPOFOL 100 ML IV ONE (01:01)
[2017-05-05 01:21] LABS: MEAN CORPUSCULAR HEMOGLOBIN 24.7 pg (27.5-34.5); MEAN CORPUSCULAR HGB CONC 30.4 g/dL (33.2-36.2); MEAN CORPUSCULAR VOLUME 81.1 fL (81-97); MEAN PLATELET VOLUME 10.4 fL (7.4-10.4); PLATELET COUNT 198 x10^3/uL (130-400); RED BLOOD COUNT 6.46 x10^6/uL (4.38-5.82)
[2017-05-05 01:23] LABS: INTERNATIONAL NORMALIZED RATIO 5.89 (0.93-1.1); PROTHROMBIN TIME 59.2 Seconds (9.6-11.5)
[2017-05-05 01:27] LABS: MD YES
[2017-05-05 01:36] LABS: BAND#(MANUAL) 36.25 x10^3/uL; BANDS%(MANUAL) 29 % (0-7); LYMPHS% (MANUAL) 2 % (22-44); METAMYELOCYTES# (MANUAL) 3.75 x10^3/uL (0-0); METAMYELOCYTES% (MANUAL) 3 % (0-1); MYELOCYTES# (MANUAL) 3.75 x10^3/uL (0-0); MYELOCYTES% (MANUAL) 3 % (0-0)
[2017-05-05 01:38] LABS: CULTURE INDICATED? YES; MICROSCOPIC INDICATED
[2017-05-05 01:38] LABS: PROGRANULOCYTES# (MANUAL) 1.25 x10^3/uL (0-0); PROGRANULOCYTES% (MANUAL) 1 % (0-0); SEGS% (MANUAL) 62 % (42-75)
[2017-05-05 01:40] LABS: ANISOCYTOSIS 1+; OVALOCYTES 1+
[2017-05-05 01:46] LABS: <PLATELET ESTIMATE> ADEQUATE; LARGE PLATELETS 1+; POLYCHROMASIA 1+; TOXIC GRAN 1+
[2017-05-05 01:47] LABS: SCHISTOCYTES 1+
[2017-05-05] MEDS ORDERED: NOREPINEPHRINE 4 MG in SODIUM CHLORIDE 0.9% 246 ML IV PRN (02:00)
[2017-05-05 02:06] LABS: ANION GAP 25 mmol/L (5-15); CALCIUM 9.1 mg/dL (8.5-10.1); CHLORIDE 97 mmol/L (98-107)
[2017-05-05 02:07] LABS: ALANINE AMINOTRANSFERASE 54 U/L (12-78); ALKALINE PHOSPHATASE 223 U/L (45-117)
[2017-05-05 02:08] LABS: TROPONIN I 0.101 ng/mL (0.000-0.045)
[2017-05-05 02:10] LABS: BILIRUBIN,TOTAL 1.9 mg/dL (0.2-1.0); CREATININE 1.65 mg/dL (0.7-1.3)
[2017-05-05 02:11] LABS: ALBUMIN 1.8 g/dL (3.4-5.0); TOTAL PROTEIN 5.9 g/dL (6.4-8.2)
[2017-05-05] MEDS ORDERED: SODIUM CHLORIDE 0.9% 1,000 ML IV ONE ×2 (02:52→04:00)
[2017-05-05] MEDS ORDERED: ONDANSETRON 2MG/ML, 2ML IVPush PRN ×2 (03:00→04:30)
[2017-05-05] MEDS ORDERED: SODIUM BICARB 8.4%, 50ML SYRINGE ONE ×4 (03:14→05:28)
[2017-05-05] MEDS ORDERED: SODIUM BICARB 8.4%, 50ML SYRINGE IVPush ONE ×3 (03:30→06:00)
[2017-05-05] MEDS ORDERED: NOREPINEPHRINE 8 MG in SODIUM CHLORIDE 0.9% 242 ML IV PRN (03:41)
[2017-05-05] MEDS ORDERED: VASOPRESSIN 100 UNIT in SODIUM CHLORIDE 0.9% 495 ML IV PRN (03:47)
[2017-05-05] MEDS ORDERED: PROPOFOL 100 ML IV PRN (03:47)
[2017-05-05] MEDS: ALBUTEROL/IPRATROPIUM 2.5MG/0.5MG, 3 ML INLINE SCH ×2 (04:00→07:26)
[2017-05-05] MEDS ORDERED: LIDOCAINE-MPF 1%, 2ML ENDO PRN (04:00)
[2017-05-05] MEDS ORDERED: VANCOMYCIN PER PHARMACY MC PRN (04:00)
[2017-05-05] MEDS ORDERED: ACETAMINOPHEN 650 MG/20.3 ML UDC NG PRN (04:00)
[2017-05-05] MEDS ORDERED: SODIUM CHLORIDE 0.9% 1,000 ML IV SCH (04:14)
[2017-05-05] MEDS ORDERED: POLYETHYLENE GLYCOL 17 GM PACKET PO PRN (04:30)
[2017-05-05] MEDS ORDERED: morphine SULFATE 10 MG/ML, 1ML IVPush PRN (04:30)
[2017-05-05] MEDS ORDERED: DOCUSATE 100 MG CAPSULE PO PRN (04:30)
[2017-05-05] MEDS ORDERED: POTA10TA11 PO (05:14)
[2017-05-05] MEDS ORDERED: DIGO125T PO (05:14)
[2017-05-05 05:34] LABS: ALBUMIN 1.3 g/dL (3.4-5.0); ANION GAP 19 mmol/L (5-15); CALCIUM 7.2 mg/dL (8.5-10.1); CHLORIDE 107 mmol/L (98-107)
[2017-05-05 05:44] LABS: ALANINE AMINOTRANSFERASE 540 U/L (12-78); ALKALINE PHOSPHATASE 185 U/L (45-117); CHOL/HDL RATIO 3.4; CHOLESTEROL, TOTAL 55 mg/dL (140-239); CREATININE 1.32 mg/dL (0.7-1.3); HDL CHOL % 29 % (26-37); HDL CHOLESTEROL (DIRECT) 16 mg/dL (40-60); LDL CHOLESTEROL,CALCULATED 16 mg/dL (54-169); TOTAL PROTEIN 3.8 g/dL (6.4-8.2); TRIGLYCERIDES 115 mg/dL (50-200); VLDL CHOLESTEROL 23 mg/dL (0-25)
[2017-05-05 05:51] LABS: MD YES; MEAN CORPUSCULAR HEMOGLOBIN 26.1 pg (27.5-34.5); MEAN CORPUSCULAR VOLUME 81.7 fL (81-97); MEAN PLATELET VOLUME 9.8 fL (7.4-10.4); PLATELET COUNT 119 x10^3/uL (130-400); RED BLOOD COUNT 5.25 x10^6/uL (4.38-5.82); RED CELL DISTRIBUTION WIDTH 26.3 % (9.4-14.8)
[2017-05-05] MEDS ORDERED: D5%-0.9% NACL 1,000 ML IV SCH (06:00)
[2017-05-05] MEDS ORDERED: SODIUM BICARBONATE 1 MEQ/ML, 50ML VIAL IVPush ONE (06:00)
[2017-05-05 06:08] LABS: HEMOGLOBIN A1C 5.7 % (4.2-6.3)
[2017-05-05 06:10] LABS: <PLATELET ESTIMATE> DECREASED; ANISOCYTOSIS 1+; BAND#(MANUAL) 26.21 x10^3/uL; BANDS%(MANUAL) 17 % (0-7); METAMYELOCYTES# (MANUAL) 3.08 x10^3/uL (0-0); METAMYELOCYTES% (MANUAL) 2 % (0-1); MONOS#(MANUAL) 15.42 x10^3/uL (0.3-2.7); MONOS% (MANUAL) 10 % (2-9); MYELOCYTES# (MANUAL) 6.17 x10^3/uL (0-0); MYELOCYTES% (MANUAL) 4 % (0-0); PMNS WITH VACUOLES 1+; POLYCHROMASIA 1+; PROGRANULOCYTES# (MANUAL) 1.54 x10^3/uL (0-0); PROGRANULOCYTES% (MANUAL) 1 % (0-0); SEG#(MANUAL) 101.77 x10^3/uL (1.8-6.8); SEGS% (MANUAL) 66 % (42-75); TOXIC GRAN 1+
[2017-05-05 06:11] LABS: GIANT PLATELETS 1+; LARGE PLATELETS 1+
[2017-05-05 06:19] LABS: ECHINOCYTES 1+
[2017-05-05] MEDS ORDERED: LACTATED RINGERS 1,000 ML IVBOLUS ONE (07:00)
[2017-05-05] MEDS ORDERED: ALBUTEROL/IPRATROPIUM 2.5MG/0.5MG, 3 ML NPPB SCH (07:00)
[2017-05-05] MEDS ORDERED: SODIUM BICARBONATE 8.4% 150 MEQ in SODIUM CHLORIDE 0.45% 1,000 ML IV SCH (07:00)
[2017-05-05] MEDS ORDERED: ALBUTEROL/IPRATROPIUM 2.5MG/0.5MG, 3 ML ONE (07:21)
[2017-05-05 07:38] LABS: TROPONIN I 0.267 ng/mL (0.000-0.045)
[2017-05-05] MEDS ORDERED: MIDAZOLAM 1 MG/ML, 5ML ONE (08:00)
[2017-05-05] MEDS ORDERED: VECURONIUM 10 MG ONE (08:00)
[2017-05-05] MEDS ORDERED: DIGOXIN 0.125 MG TABLET PO SCH (09:00)
[2017-05-05] MEDS ORDERED: BUSPIRONE HCL 7.5 MG PO SCH (09:00)
[2017-05-05] MEDS ORDERED: FAMOTIDINE 20 MG/2 ML IVPush SCH (09:00)
[2017-05-05] MEDS ORDERED: PANTOPRAZOLE 40 MG IV IV SCH (09:00)
[2017-05-05] MEDS ORDERED: TEMPLATE NON-FORMULARY MED. (Fluticasone/Salmeterol** (Advair 250-50 Diskus**) 1 PUFF) INH SCH (09:00)
[2017-05-05] MEDS ORDERED: TAMSULOSIN 0.4 MG CAP.ER.24H PO SCH (09:00)
[2017-05-05] MEDS ORDERED: SODIUM BICARBONATE 8.4% 150 MEQ in DEXTROSE 5% 1,000 ML IV SCH (09:00)
[2017-05-05] MEDS ORDERED: BIMATOPROST EACHEYE SCH (09:00)
[2017-05-05] MEDS ORDERED: CEFEPIME 2 GM in DEXTROSE 5% 100 ML IV SCH (09:00)
[2017-05-05] MEDS ORDERED: PANTOPRAZOLE 40 MG IV ONE (09:17)
[2017-05-05] MEDS ORDERED: FAMOTIDINE 20 MG/2 ML ONE (09:18)
[2017-05-05] MEDS ORDERED: EPINEPHRINE 2 MG in SODIUM CHLORIDE 0.9% 248 ML IV PRN (09:30)
[2017-05-05 09:35] VITALS: BP 143/49
[2017-05-05] MEDS ORDERED: morphine SULFATE 10 MG/ML, 1ML ONE (10:04)
[2017-05-05] MEDS ORDERED: LORazepam 2 MG/ML, 1ML ONE (10:04)
[2017-05-05] MEDS ORDERED: MORPHINE SULFATE 4 MG/ML, 1ML IVPush ONE (10:30)
[2017-05-05] MEDS ORDERED: LORazepam 2 MG/ML, 1ML IVPush ONE (10:30)
== END 2017-05-05 12:36 | disposition expired ==
LOC: ED 02:06 → EDIP 03:16 → UNDOADMIN 03:16 → ED 12:36
DX: R65.21 Severe sepsis with septic shock (principal); K72.90 Hepatic failure, unspecified without coma; I48.2 Chronic atrial fibrillation; E87.2 Acidosis; J96.01 Acute respiratory failure with hypoxia; I21.4 Non-ST elevation (NSTEMI) myocardial infarction; J15.9 Unspecified bacterial pneumonia; E86.0 Dehydration; N17.9 Acute kidney failure, unspecified; E87.1 Hypo-osmolality and hyponatremia; E87.5 Hyperkalemia; R73.9 Hyperglycemia, unspecified; D72.825 Bandemia; A04.72 Enterocolitis due to Clostridium difficile, not specified as recurrent; I44.7 Left bundle-branch block, unspecified
CPT/HCPCS: 36415; 36556; 36600; 51702; 70450; 71045; 74176; 80047; 80053; 80061; 80162; 81001; 82533; 82803; 83036; 83605; 83735; 84100; 84145; 84484; 84550; 85025; 85610; 87040; 87077; 87086; 87186; 93005; 94002; 94640; 96365; 96366; 96368; 96375; 96376; 99291; 99292; C9113; J0171; J0692; J2060; J2250; J2704; J3370; J7030; J7040; J7050; J7120; J7042; J7620; S0028